=== PATIENT | female | born 1995 | race Caucasian/White ===

== ENCOUNTER 2022-04-24 14:33 | Emergency (ER) | payer MEDICAID ==
[~2022-04-24] VITALS: Ht 157.5 cm; Wt 46.0 kg
[2022-04-24 16:23] LABS: Urine Bacteria NONE SEEN /hpf (None Seen); Urine Blood 3+ /uL (Negative); Urine Mucus FEW (None Seen); Urine Specific Gravity 1.026 (1.001-1.035); Urine WBC 21 /hpf (0 - 5)
[2022-04-24 16:41] LABS: Basophils # (auto) 0.1 10 ^3/uL (0-0.2); Eosinophils # (auto) 0.3 10 ^3/uL (0-0.8); Eosinophils % (auto) 2.6 % (0.0-7.0); Monocytes # (auto) 0.8 10 ^3/uL (0-1.3)
[2022-04-24 16:43] LABS: Basophils % (auto) 0.6 % (0.0-2.0); Hematocrit 38.7 % (36.0-46.0); Hemoglobin 12.7 g/dL (12.2-16.2); Lymphocytes # (auto) 3.2 10 ^3/uL (0.4-5.4); Lymphocytes % (auto) 24.9 % (10.0-50.0); Mean Corpuscular Hemoglobin 27.1 pg (28.0-32.0); Mean Corpuscular Hgb Conc. 32.8 g/dL (32.0-36.0); Mean Corpuscular Volume 82.6 fL (80.0-100.0); Monocytes % (auto) 6.4 % (0.0-12.0); Neutrophils # (auto) 8.3 10 ^3/uL (1.6-8.6); Neutrophils % (auto) 65.5 % (37.0-80.0); Red Blood Cells 4.69 10^6/uL (4.0-5.20); Red Cell Distribution Width 13.3 % (11.8-14.3); White Blood Cell 12.7 10^3/uL (4.4-10.8)
[2022-04-24 17:03] LABS: BUN/Creatinine Ratio 11.4; Calcium 8.8 mg/dL (8.5-10.1)
[2022-04-24 17:08] VITALS: BP 120/72
[2022-04-24] MEDS ORDERED: KETOROLAC TROMETH 60MG/2ML VIAL IM ONE (17:15)
[2022-04-24 17:16] LABS: Potassium 3.6 mmol/L (3.5-5.1)
[2022-04-24] MEDS ORDERED: TRAM-297 PO (17:30)
[2022-04-24] MEDS ORDERED: CIPR-173 PO (17:30)
[2022-04-24] MEDS ORDERED: TAM04C PO (17:30)
== END 2022-04-24 17:33 | disposition home or self-care (01) ==
LOC: ER 14:33
DX: N20.0 Calculus of kidney (principal); N39.0 Urinary tract infection, site not specified; Z79.2 Long term (current) use of antibiotics; Z79.899 Other long term (current) drug therapy; Z88.0 Allergy status to penicillin
CPT/HCPCS: 36415; 74176; 80048; 81001; 81025; 85025; 99284; J1885